=== PATIENT | male | born 1950 | race Caucasian/White ===

== ENCOUNTER → 2019-04-25 | Day surgery (SDC) | payer MEDICARE, OTHER ==
[2019-04-24 09:05] LABS: BASOPHILS # (AUTO) 0.1 (0.0-0.1); BASOPHILS % 1.2 % (0.0-1.0); EOSINOPHILS # (AUTO) 0.5 (0.0-0.4); EOSINOPHILS % 5.8 % (0.0-6.0); HEMATOCRIT 47.3 % (38.2-49.6); HEMOGLOBIN 15.4 g/dL (14.0-18.0); LYMPHOCYTES # (AUTO) 1.3 (1.0-3.2); LYMPHOCYTES % 16.5 % (18.0-39.1); MEAN CORPUSCULAR HEMOGLOBIN 29.7 pg (28-32); MEAN CORPUSCULAR HGB CONC 32.6 g/dL (31-35); MEAN CORPUSCULAR VOLUME 91.1 fL (81-99); MONOCYTES # (AUTO) 0.7 (0.2-0.8); MONOCYTES % 9.6 % (4.4-11.3); NEUTROPHILS # (AUTO) 5.1 (2.1-6.9); NEUTROPHILS % 65.7 % (38.7-80.0); PLATELET COUNT 319 x10e3/uL (140-360); RED BLOOD COUNT 5.19 x10e6/uL (4.3-5.7); RED CELL DISTRIBUTION WIDTH 14.3 % (11.7-14.4)
[~2019-04-25] MED LIST: ASPIR 8181 MG PO; CABERGOLINE0.5 MG PO; CELEBREX100 MG PO; CIALIS5 MG PO; DIAZEPAM5 MG PO; ESOMEPRAZOLE MA40 MG PO; HYOSCYAMINE 0.125 MG TAB ONE; LIDOCAINE HCL 2% LOCAL INJ 5 ML SDV VIAL INJ ONE; LISINOPRIL10 MG PO; MIDAZOLAM HCL 2 MG/2 ML VIAL ONE; PROPOFOL IV EMULSION 10 MG/ML 50 ML VIAL ONE; REPATHA SC; TESTOSTERONE SC; TIZANIDINE HCL4 M1 PO; TYLENOL CODEINE PO
--- OUTSIDE RECORDS SUMMARY | 2019-04-25 06:45 | XMS REPORT ---
Author Author [facility] Address Unknown Phone Unavailable Care Team Providers Care Babcock Tester Name Role Phone CLAUDIAJerTom Unavailable Unavailable EMMETT CESAR Unavailable Unavailable Problems This patient has no known problems. Allergies, Adverse Reactions, Alerts This patient has no known allergies or adverse reactions. Medications This patient has no known medications. Results Test Description Test Time Test Comments Text Results Atomic Results Result Comments MR, ABDOMEN, MRCP 2018-09-07 16:09:00 FINAL REPORT MR Abdomen dated 09/07/2018 Comment: Multiplanar T1 and T2-weighted images, respiratory triggered and breath-hold MRCP sequences were obtained. 3-D reconstruction of the abdomen was performed for better evaluation of the biliary tree. Gallbladder is contracted. No gallstone is present. No gallbladder wall thickening or pericholecystic fluid collection is seen. MRCP demonstrates normal caliber intra and extra hepatic biliary ducts. No filling defect is seen in the biliary ducts to suggest choledocholithiasis. Common bile duct measures approximately 3 mm in size. Pancreatic duct is normal in caliber. Liver is normal in size without focal abnormality. Liver is suboptimally evaluated on the MRCP sequences. Spleen is normal in size. Pancreas and adrenals are unremark able. Both kidneys are normal in size. Impression: No cholelithiasis, choledocholithiasis or biliary dilatation. Signed: Gali Jara MDReport Verified Date/Time: 09/07/2018 16:09:28 Reading Location: [facility] C013Y CT Body Reading Room R LOCAL, WB, 2 OR MORE DAYS 2018-09-07 14:58:00 Reason for Exam:->C25.9 C7A.1 FINAL REPORT PROCEDURE: OCTREOSCAN - Tumor Localization CPT CODE: 80519, 65624, 35557 INDICATION: C25.9, C7A.1 PROTOCOL: 6.4 mCi of In-111 pentetreotide was injected intravenously. Images were obtained 4 and 25 hours after tracer injection and included whole body and spot images on both days as well as tomographic (SPECT) images of the abdomen on Day 1 and of the chest on Day 2. Limited low-dose CT images were also obtained for anatomic correlation. FINDINGS: Tracer distribution is physiological. IMPRESSION: Normal Octreoscan. No evidence of somatostatin receptor positive neoplasm is identified. Signed: Kiko Foley MDReport Verified Date/Time: 09/07/2018 14:58:52 Reading Location: [address] [address] Reading Room , CTA AAA, W/ LEEROY.EXT.RUNOFF 2018-08-09 17:14:00 Addendum BeginsREPORT STATUS:A I agree with the nonvascular findings with exceptions as follow:*Mild diverticulosis of the sigmoid and right colon.*Prior laminectomies from L2 through L4.*An arterially enhancing lesion in the pancreatic body measures 0.8 cm on axial image 53. 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 Referral to a pancreatic surgeon and a possible MRI are recommended.*An enhancing lesion at the periphery of segment VIII measures 1.1 cm. This is indeterminate in origin. An additional 0.6 cm lesion in segment VIII is indeterminate in origin. Given the likely neuroendocrine tumor in the pancreas, evaluation with an MRI of the liver is recommended.*Grade 2 anterolisthesis of L5 on S1. *Two retroaortic left renal veins. The findings were discussed with Dr. Sarmiento on 08/09/2018 at 5:14 PM. Signed: Deep Myles MDReport Verified Date/Time: 08/09/2018 17:14:34 Reading Location: [address] Radiology Reading RoomAddendum EndsAddendum BeginsREPORT STATUS:A The volume of the abdominal aortic aneurysm is measuring 75 cc, measured from the infrarenal segment of the abdominal aorta to the bifurcation. Signed: Azael Mcintosh MDReport Verified Date/Time: 08/09/2018 14:58:06 Reading Location: [facility] P047 Cardiology MRIAddendum EndsFINAL REPORT CTA AAA with bilateral external runoff - chest with coronary amarilis cium score and coronary CTA: 08/09/2018 11:17 AM. Comparison: None available History: 67 years old Male with hypertension, dyslipidemia, coronary artery disease with clinically suspected peripheral vascular disease. Evaluated for further treatment options. Indication: Clinically suspected peripheral vascular disease. This study is performed in an attempt to avoid an invasive procedure. Technique: Multi-detector CT technology was employed ([place] CT 660 scanner). Spiral acquisition before and during intravenous contrast administration. Images were obtained before and during the dynamic passage of intravenous contrast material. Multi-planar 3-D volume-rendering reconstruction was performed using an independent workstation interactively by the interpreting physician as well as the 3-D specialist for optimal visualization of the abdominal aorta, pelvic arteries as well as its branches, along with bilateral lower extremity vasculature. Please refer to the contrast sheet scanned in the EPIC system for the amount and route of contrast given. This exam was performed according to our departmental dose-optimization programme, which includes automated exposure control, adjustment of the mA and/or kV according to patient size and/or use of iterative reconstruction technique. Dose modulation, iterative reconstruction, and/or weight based adjustment of the mA/kV was utilized to reduce the radiation dose to as low as reasonably achievable. RESULT: Potential study limitations: None. LIMITED CHEST:The visualized chest wall is unremarkable. The visualized lungs reveal no acute abnormalities. VASCULAR WITH ADVANCED 3-D OFFLINE POST- PROCESSING:The abdominal aorta: Normal in course and caliber with mild to moderate calcific vascular changes, except for moderate circumferential calcification near the bifurcation of the aorta with a minimal luminal diameter measuring 1.1 x 1.2 cm. The celiac artery, SMA, and ENOC are patent. There are two right and one left renal arteries, which are widely patent. The distal segment of the left common iliac artery has moderate luminal stenosis with a minimal luminal diameter measuring 0.6 x 0.7 cm, with normal proximal segment measuring 1.2 x 1.4 cm. Also the proximal segment of the external iliac artery has mild to moderate luminal stenosis with a minimal luminal diameter measuring 0.5 x 0.5 cm, with normal distal segment measuring 0.8 x 0.9 cm. Beyond this seg ment the left external iliac and left common femoral arteries are moderately tortuous with mild to moderate calcific atherosclerotic changes with no significant luminal stenosis. The right common iliac artery has mild to moderate calcification with no significant luminal stenosis, however the proximal segment of the right external iliac artery has mild to moderate luminal stenosis of the minimal luminal diameter measuring 0.6 x 0.6 cm, with the distal normal segment measuring 0.8 x 0.8 cm. Beyond this segment the right external iliac and left common femoral arteries are moderately tortuous with mild to moderate calcific atherosclerotic changes with no significant luminal stenosis. There is no acute aortic pathology, such as dissection, intramural hematoma, or contained rupture. Currency Examiner dimensions of the abdominal aorta are as follows: *2.6 cm at the supra-mesenteric segment*2.2 cm at the mesenteric segment*1.8 cm at the renal segment*2.0 cm at the infrarenal segment*1.1 x 1.2 cm at the aortic bifurcation Minimal pelvic vessel calibers are as follows: *1.0 x 1.1 cm at the right common iliac artery*0.6 x 0.7 cm at the left common iliac artery, with the proximal normal segment measuring 1.3 x 1.4 cm.*0.6 x 0.6 cm at the right external iliac artery, with the more distal normal segment measuring 0.8 x 0.8 cm*0.5 x 0.5 cm at the left external iliac artery, with the more distal normal segment measuring 0.8 x 0.9 cm The Inflow vessels:There is no significant in-flow disease:There is mild to moderate calcific atherosclerotic changes at the distal segment of the right common femoral artery with no significant luminal stenosis, minimal luminal diameter measuring 0.5 x 0.8 cm. Otherwise the remaining right superficial femoral, deep femoral arteries are widely patent with mild scattered calcific sclerotic changes. There is mild to moderate calcific atherosclerotic changes at the proximal segment of the left superficial femoral artery with no significant luminal stenosis. Otherwise the remaining left common femoral, superficial femoral, and deep femoral arteries are all widely patent with no significant stenosis.The right and left popliteal arteries are widely patent. The outflow vessels:There is no significant out-flow disease:The right popliteal artery and tibioperoneal trunk are widely patent with only mild scattered atherosclerotic changes.The right anterior tibial artery is widely patent and terminates in a normal appearing dorsalis pedis artery. The posterior tibial artery is widely patent and terminates in normal appearing posterior plantar branches. The peroneal artery is widely patent and terminates just above the ankle. The left popliteal artery and tibioperoneal trunk are widely patent with only mild scattered atherosclerotic changes.The left anterior tibial artery is widely patent and terminates in a normal appearing dorsalis pedis artery. The posterior tibial artery is widely patent and terminates in normal appearing posterior plantar branches. The peroneal artery is widely patent and terminates just above the ankle. The IVC, right iliac vein, and left iliac vein are patent and without visible thrombus. The right greater saphenous vein normal. The left greater saphenous vein is not seen likely due to venous stripping ABDOMEN- PELVIS:In the abdomen, the liver and spleen appears unremarkable. No abnormal enhancing structure is identified. The gallbladder and pancreas appears grossly normal. The adrenal glands are not enlarged. There is a 6 mm calcific lymph node noted near the pelvis (image 165). The kidneys are normal in size and shape. No hydronephrosis or perirenal fluid collection is identified. Incidental finding, there is a retroaortic left renal artery course with no evidence of thrombus. Bowel is not well assessed by CT angiography as enteric contrast is not given. No obvious bowel dilation is seen. There is no significant retroperitoneal adenopathy. No free fluid or free air is identified. The visualized pelvic organs appear unremarkable, mildly enlarged prostate associated with calcification. There are surgical clips noted near the medial aspect of the left knee likely from prior varicose veins surgery. BONES:Degenerative changes involving the lumbar spine. Impression: 1. The abdominal aorta is normal in course and caliber with mild to moderate calcific vascular changes, except for moderate circumferential calcification near the bifurcation of the aorta with a minimal luminal diameter measuring 1.1 x 1.2 cm. No acute abnormalities identified. 2. .The distal segment of the left common iliac artery has moderate luminal stenosis with a minimal luminal diameter measuring 0.6 x 0.7 cm, with normal proximal segment measuring 1.2 x 1.4 cm. 3. The right common iliac artery has mild to moderate calcification with no significant luminal stenosis, however the proximal segment of the right external iliac artery has mild to moderate luminal stenosis of the minimal luminal diameter measuring 0.6 x 0.6 cm, with the distal normal segment measuring 0.8 x 0.8 cm. 4. Normal bilateral runoffs with no significant luminal stenosis. No evidence for significant in- flow or out-flow disease, except for mild to moderate calcification as described above. An addendum will be dictated regarding the non-vascular findings by the Staff Interpreter Radiologists. Signed: Azael Mcintosh Verified Date/Time: 08/09/2018 14:36:33 Reading Location: [place] [id number] Cardiology MRI -CREATININE 2018-08-09 12:05:00 POC-CREATININE (BEAKER) (test kzlu=7741) 1.0 mg/dL 0.6-1.3 TESTED AT [facility] [address] [facility] [address] POC-EGFR (BEAKER) (test zvbd=5181) 75 mL/min/1.73M2 RAD, CHEST, 2 [id number] 10:39:00Reason for Exam:->z95.3Location[facility] HISTORY: z95.3 TECHNIQUE: 2 views of the chest COMPARISON: 02/16/2017 IMPRESSION: There are no infiltrates. A small left pleural effusion is again seen. The cardiomediastinal silhouette is unchanged with sternotomy and aortic valve replacement. Multiple chronic left rib fracture deformities are again noted. Signed: Fernando Hayes Verified Date/Time: 03/03/2017 10:39:07 Reading Location: [facility] Radiology Reading Room C METABOLIC [id number] 05:28:00* Test Item Value Reference Range Comments SODIUM (BEAKER) (test ykwy=760) 142 meq/L 136-145 POTASSIUM (BEAKER) (test mboj=087) 4.2 meq/L 3.5-5.1 CHLORIDE (BEAKER) (test fyag=620) 105 meq/L 98-107 CO2 (BEAKER) (test kefe=842) 29 meq/L 22-29 BLOOD UREA NITROGEN (BEAKER) (test mnbu=553) 6 mg/dL 7-21 CREATININE (BEAKER) (test hcoc=256) 0.77 mg/dL 0.57-1.25 GLUCOSE RANDOM (BEAKER) (test bdrm=815) 103 mg/dL 70-105 CALCIUM (BEAKER) (test vpjl=534) 9.6 mg/dL 8.4-10.2 EGFR (BEAKER) (test qpyu=0326) 101 mL/min/1.73 sq m ESTIMATED GFR IS NOT ACCURATE CREATININE CLEARANCE IN PREDICTING GLOMERULAR FILTRATION RATE. ESTIMATED GFR IS NOT APPLICABLE FOR DIALYSIS PATIENTS. PROTHROMBIN [id number] 05:11:00* Test Item Value Reference Range Comments PROTIME (BEAKER) (test kihd=097) 14.5 seconds 11.7-14.7 INR (BEAKER) (test wzyo=313) 1.1 <=5.9 RECOMMENDED COUMADIN/WARFARIN INR THERAPY RANGESSTANDARD DOSE: 2.0 - 3.0 Inclu jennifer: PROPHYLAXIS for venous thrombosis, systemic embolization; TREATMENT for adi ous thrombosis and/or pulmonary embolus.HIGH RISK: Target INR is 2.5-3.5 for pat ients with mechanical heart valves.CBC W/PLT COUNT & AUTO [id number] 05:10:00* Test Item Value Reference Range Comments WHITE BLOOD CELL COUNT (BEAKER) (test qrfe=278) 9.6 K/ L 3.5-10.5 RED BLOOD CELL COUNT (BEAKER) (test ikmu=694) 2.96 M/ L 4.63-6.08 HEMOGLOBIN (BEAKER) (test ljlx=289) 8.8 GM/DL 13.7-17.5 HEMATOCRIT (BEAKER) (test sbfm=845) 27.8 % 40.1-51.0 MEAN CORPUSCULAR VOLUME (BEAKER) (test njeh=623) 93.9 fL 79.0-92.2 MEAN CORPUSCULAR HEMOGLOBIN (BEAKER) (test zhse=705) 29.7 pg 25.7-32.2 MEAN CORPUSCULAR HEMOGLOBIN CONC (BEAKER) (test nbfg=823) 31.7 GM/DL 32.3-36.5 RED CELL DISTRIBUTION WIDTH (BEAKER) (test vexl=753) 13.9 % 11.6-14.4 PLATELET COUNT (BEAKER) (test xqax=905) 519 K/CU MM 150-450 MEAN PLATELET VOLUME (BEAKER) (test dqoc=400) 9.9 fL 9.4-12.4 NUCLEATED RED BLOOD CELLS (BEAKER) (test juot=689) 0 /100 WBC 0-0 NEUTROPHILS RELATIVE PERCENT (BEAKER) (test tabm=877) 63 % LYMPHOCYTES RELATIVE PERCENT (BEAKER) (test xbwk=244) 20 % MONOCYTES RELATIVE PERCENT (BEAKER) (test eyge=466) 9 % EOSINOPHILS RELATIVE PERCENT (BEAKER) (test wvkv=395) 6 % BASOPHILS RELATIVE PERCENT (BEAKER) (test ydsg=748) 1 % NEUTROPHILS ABSOLUTE COUNT (BEAKER) (test hqxj=511) 6.08 K/ L 1.78-5.38 LYMPHOCYTES ABSOLUTE COUNT (BEAKER) (test kyku=946) 1.91 K/ L 1.32-3.57 MONOCYTES ABSOLUTE COUNT (BEAKER) (test neuq=773) 0.85 K/ L 0.30-0.82 EOSINOPHILS ABSOLUTE COUNT (BEAKER) (test qvdc=529) 0.60 K/ L 0.04-0.54 BASOPHILS ABSOLUTE COUNT (BEAKER) (test igkn=864) 0.06 K/ L 0.01-0.08 IMMATURE GRANULOCYTES-RELATIVE PERCENT (BEAKER) (test fjxr=8841) 1 % 0-1 BLOOD [id number] 00:00:00* Test Item Value Reference Range Comments CULTURE (BEAKER) (test foys=5720) No growth in 5 days BLOOD [id number] 12:00:00* Test Item Value Reference Range Comments CULTURE (BEAKER) (test flyq=4595) No growth in 5 days PROTHROMBIN TIME/[id number] 05:45:00* Test Item Value Reference Range Comments PROTIME (BEAKER) (test dwmq=278) 14.9 seconds 11.7-14.7 INR (BEAKER) (test dimc=377) 1.2 <=5.9 RECOMMENDED COUMADIN/WARFARIN INR THERAPY RANGESSTANDARD DOSE: 2.0 - 3.0 Inclu jennifer: PROPHYLAXIS for venous thrombosis, systemic embolization; TREATMENT for adi ous thrombosis and/or pulmonary embolus.HIGH RISK: Target INR is 2.5-3.5 for pat ients with mechanical heart valves.CBC W/PLT COUNT & AUTO [id number] 05:29:00* Test Item Value Reference Range Comments WHITE BLOOD CELL COUNT (BEAKER) (test ljmm=588) 12.5 K/ L 3.5-10.5 RED BLOOD CELL COUNT (BEAKER) (test mcrn=152) 2.75 M/ L 4.63-6.08 HEMOGLOBIN (BEAKER) (test treo=967) 8.3 GM/DL 13.7-17.5 HEMATOCRIT (BEAKER) (test xoia=687) 25.5 % 40.1-51.0 MEAN CORPUSCULAR VOLUME (BEAKER) (test borg=532) 92.7 fL 79.0-92.2 MEAN CORPUSCULAR HEMOGLOBIN (BEAKER) (test hjus=585) 30.2 pg 25.7-32.2 MEAN CORPUSCULAR HEMOGLOBIN CONC (BEAKER) (test faxb=003) 32.5 GM/DL 32.3-36.5 RED CELL DISTRIBUTION WIDTH (BEAKER) (test djec=117) 13.6 % 11.6-14.4 PLATELET COUNT (BEAKER) (test pyon=012) 439 K/CU MM 150-450 MEAN PLATELET VOLUME (BEAKER) (test hxhw=709) 10.0 fL 9.4-12.4 NUCLEATED RED BLOOD CELLS (BEAKER) (test fczb=367) 0 /100 WBC 0-0 NEUTROPHILS RELATIVE PERCENT (BEAKER) (test mafo=906) 70 % LYMPHOCYTES RELATIVE PERCENT (BEAKER) (test uvdo=228) 13 % MONOCYTES RELATIVE PERCENT (BEAKER) (test oppa=610) 10 % EOSINOPHILS RELATIVE PERCENT (BEAKER) (test regy=519) 5 % BASOPHILS RELATIVE PERCENT (BEAKER) (test yacr=705) 1 % NEUTROPHILS ABSOLUTE COUNT (BEAKER) (test pozz=683) 8.78 K/ L 1.78-5.38 LYMPHOCYTES ABSOLUTE COUNT (BEAKER) (test vucu=727) 1.68 K/ L 1.32-3.57 MONOCYTES ABSOLUTE COUNT (BEAKER) (test bbow=465) 1.29 K/ L 0.30-0.82 EOSINOPHILS ABSOLUTE COUNT (BEAKER) (test siip=350) 0.61 K/ L 0.04-0.54 BASOPHILS ABSOLUTE COUNT (BEAKER) (test saqy=594) 0.08 K/ L 0.01-0.08 IMMATURE GRANULOCYTES-RELATIVE PERCENT (BEAKER) (test qfae=5385) 1 % 0-1 BASIC METABOLIC [id number] 05:25:00* Test Item Value Reference Range Comments SODIUM (BEAKER) (test ibjw=011) 142 meq/L 136-145 POTASSIUM (BEAKER) (test sbgd=232) 3.8 meq/L 3.5-5.1 CHLORIDE (BEAKER) (test ksya=097) 106 meq/L 98-107 CO2 (BEAKER) (test arcn=583) 26 meq/L 22-29 BLOOD UREA NITROGEN (BEAKER) (test xkuo=422) 8 mg/dL 7-21 CREATININE (BEAKER) (test qhmv=217) 0.72 mg/dL 0.57-1.25 GLUCOSE RANDOM (BEAKER) (test wybm=168) 91 mg/dL 70-105 CALCIUM (BEAKER) (test otpi=619) 9.0 mg/dL 8.4-10.2 EGFR (BEAKER) (test eroe=1881) 110 mL/min/1.73 sq m ESTIMATED GFR IS NOT ACCURATE CREATININE CLEARANCE IN PREDICTING GLOMERULAR FILTRATION RATE. ESTIMATED GFR IS NOT APPLICABLE FOR DIALYSIS PATIENTS. [id number] 05:24:00* Test Item Value Reference Range Comments MAGNESIUM (BEAKER) (test pqsk=731) 1.8 mg/dL 1.6-2.6 PROTHROMBIN [id number] 05:20:00* Test Item Value Reference Range Comments PROTIME (BEAKER) (test wgfs=873) 15.2 seconds 11.7-14.7 INR (BEAKER) (test fpsm=360) 1.2 <=5.9 RECOMMENDED COUMADIN/WARFARIN INR THERAPY RANGESSTANDARD DOSE: 2.0 - 3.0 Inclu jennifer: PROPHYLAXIS for venous thrombosis, systemic embolization; TREATMENT for adi ous thrombosis and/or pulmonary embolus.HIGH RISK: Target INR is 2.5-3.5 for pat ients with mechanical heart valves.[id number] 18:51:00* Test Item Value Reference Range Comments MAGNESIUM (BEAKER) (test mens=959) 1.7 mg/dL 1.6-2.6 BASIC METABOLIC [id number] 18:51:00* Test Item Value Reference Range Comments SODIUM (BEAKER) (test qqeg=968) 140 meq/L 136-145 POTASSIUM (BEAKER) (test spno=630) 3.4 meq/L 3.5-5.1 CHLORIDE (BEAKER) (test upii=833) 106 meq/L 98-107 CO2 (BEAKER) (test dlnl=122) 24 meq/L 22-29 BLOOD UREA NITROGEN (BEAKER) (test vibm=416) 8 mg/dL 7-21 CREATININE (BEAKER) (test tsbn=739) 0.73 mg/dL 0.57-1.25 GLUCOSE RANDOM (BEAKER) (test rzwu=024) 104 mg/dL 70-105 CALCIUM (BEAKER) (test cdds=404) 8.9 mg/dL 8.4-10.2 EGFR (BEAKER) (test qqfa=3596) 108 mL/min/1.73 sq m ESTIMATED GFR IS NOT ACCURATE CREATININE CLEARANCE IN PREDICTING GLOMERULAR FILTRATION RATE. ESTIMATED GFR IS NOT APPLICABLE FOR DIALYSIS PATIENTS. CBC W/PLT COUNT & AUTO [id number] 18:12:00* Test Item Value Reference Range Comments WHITE BLOOD CELL COUNT (BEAKER) (test oemg=340) 11.8 K/ L 3.5-10.5 RED BLOOD CELL COUNT (BEAKER) (test esvn=224) 2.61 M/ L 4.63-6.08 HEMOGLOBIN (BEAKER) (test dqxz=778) 7.9 GM/DL 13.7-17.5 HEMATOCRIT (BEAKER) (test ghnc=653) 23.7 % 40.1-51.0 MEAN CORPUSCULAR VOLUME (BEAKER) (test kmhb=335) 90.8 fL 79.0-92.2 MEAN CORPUSCULAR HEMOGLOBIN (BEAKER) (test nvvm=121) 30.3 pg 25.7-32.2 MEAN CORPUSCULAR HEMOGLOBIN CONC (BEAKER) (test hxmm=246) 33.3 GM/DL 32.3-36.5 RED CELL DISTRIBUTION WIDTH (BEAKER) (test iexd=481) 13.4 % 11.6-14.4 PLATELET COUNT (BEAKER) (test ijpt=646) 372 K/CU MM 150-450 MEAN PLATELET VOLUME (BEAKER) (test mqsi=534) 9.9 fL 9.4-12.4 NUCLEATED RED BLOOD CELLS (BEAKER) (test aybm=166) 0 /100 WBC 0-0 NEUTROPHILS RELATIVE PERCENT (BEAKER) (test yfpz=541) 71 % LYMPHOCYTES RELATIVE PERCENT (BEAKER) (test tibf=478) 13 % MONOCYTES RELATIVE PERCENT (BEAKER) (test tjjz=514) 10 % EOSINOPHILS RELATIVE PERCENT (BEAKER) (test zqgd=843) 5 % BASOPHILS RELATIVE PERCENT (BEAKER) (test xqwg=885) 1 % NEUTROPHILS ABSOLUTE COUNT (BEAKER) (test ihhs=868) 8.38 K/ L 1.78-5.38 LYMPHOCYTES ABSOLUTE COUNT (BEAKER) (test vfpi=898) 1.55 K/ L 1.32-3.57 MONOCYTES ABSOLUTE COUNT (BEAKER) (test ooym=932) 1.20 K/ L 0.30-0.82 EOSINOPHILS ABSOLUTE COUNT (BEAKER) (test yvno=633) 0.58 K/ L 0.04-0.54 BASOPHILS ABSOLUTE COUNT (BEAKER) (test skwe=405) 0.07 K/ L 0.01-0.08 IMMATURE GRANULOCYTES-RELATIVE PERCENT (BEAKER) (test bxwk=4674) 1 % 0-1 BLOOD GAS, [id number] 18:04:00* Test Item Value Reference Range Comments PH ARTERIAL (BEAKER) (test kzie=485) 7.43 7.35-7.45 PCO2 ARTERIAL (BEAKER) (test szbo=060) 42 mmHg 35-45 PO2 ARTERIAL (BEAKER) (test hetz=396) 72 mmHg 80-90 O2 SATURATION ARTERIAL (BEAKER) (test nqlb=908) 95.1 % 96.0-97.0 HCO3 ARTERIAL (BEAKER) (test oewi=036) 27 mmol/L 21-29 BASE EXCESS ARTERIAL (BEAKER) (test eovg=349) 2.7 mmol/L -2.0-3.0 PATIENT TEMPERATURE (BEAKER) (test andg=0143) 36.8 C FIO2 (BEAKER) (test xryi=9015) 28.0 % POTASSIUM-STAT [id number] 18:04:00* Test Item Value Reference Range Comments POTASSIUM (BEAKER) (test bxwb=486) 3.2 meq/L 3.6-5.5 HGB/HCT (H&H) - STAT [id number] 18:04:00* Test Item Value Reference Range Comments HEMOGLOBIN (BEAKER) (test bilz=316) 8.6 g/dL 13.0-16.8 HEMATOCRIT (BEAKER) (test wvtn=095) 25.0 % 40.0-50.0 CALCIUM, [id number] 18:04:00* Test Item Value Reference Range Comments CALCIUM IONIZED (BEAKER) (test lfbj=182) 1.14 mmol/L 1.12-1.27 PH, BLOOD (BEAKER) (test ldlq=1915) 7.43 GLUCOSE-STAT [id number] 18:02:00* Test Item Value Reference Range Comments GLUCOSE RANDOM (BEAKER) (test dmld=903) 98 mg/dL 70-110 SODIUM NA-STAT [id number] 18:02:00* Test Item Value Reference Range Comments SODIUM (BEAKER) (test qrzw=054) 139 meq/L 135-148 SPUTUM CULTURE + GRAM [id number] 08:34:00* Test Item Value Reference Range Comments CULTURE (BEAKER) (test rlfj=7651) <1+ Streptococcus not group A beta hemolyticIdentified by serological grouping. GRAM STAIN RESULT (BEAKER) (test mzhl=7572) 2+ WBCs GRAM STAIN RESULT (BEAKER) (test zjir=595464) 0-5 epithelial cells GRAM STAIN RESULT (BEAKER) (test etub=906196) <1+ gram positive rods GRAM STAIN RESULT (BEAKER) (test roml=541670) <1+ gram positive cocci in chains, pairs and clusters 2+ Normal respiratory jermaine presentPROTHROMBIN TIME/[id number] 07:00:00* Test Item Value Reference Range Comments PROTIME (BEAKER) (test hgni=597) 14.8 seconds 11.7-14.7 INR (BEAKER) (test rtco=138) 1.2 <=5.9 RECOMMENDED COUMADIN/WARFARIN INR THERAPY RANGESSTANDARD DOSE: 2.0 - 3.0 Inclu jennifer: PROPHYLAXIS for venous thrombosis, systemic embolization; TREATMENT for adi ous thrombosis and/or pulmonary embolus.HIGH RISK: Target INR is 2.5-3.5 for pat ients with mechanical heart valves.URINE [id number] 10:59:00* Test Item Value Reference Range Comments CULTURE (BEAKER) (test ydej=0723) No growth PROTHROMBIN [id number] 06:36:00* Test Item Value Reference Range Comments PROTIME (BEAKER) (test lkie=149) 15.1 seconds 11.7-14.7 INR (BEAKER) (test smmf=316) 1.2 <=5.9 RECOMMENDED COUMADIN/WARFARIN INR THERAPY RANGESSTANDARD DOSE: 2.0 - 3.0 Inclu jennifer: PROPHYLAXIS for venous thrombosis, systemic embolization; TREATMENT for adi ous thrombosis and/or pulmonary embolus.HIGH RISK: Target INR is 2.5-3.5 for pat ients with mechanical heart valves.CBC W/PLT COUNT & AUTO [id number] 06:32:00* Test Item Value Reference Range Comments WHITE BLOOD CELL COUNT (BEAKER) (test qvsq=459) 11.4 K/ L 3.5-10.5 RED BLOOD CELL COUNT (BEAKER) (test mrjy=622) 2.70 M/ L 4.63-6.08 HEMOGLOBIN (BEAKER) (test qxpq=120) 8.1 GM/DL 13.7-17.5 HEMATOCRIT (BEAKER) (test rlbx=612) 24.6 % 40.1-51.0 MEAN CORPUSCULAR VOLUME (BEAKER) (test tbvm=168) 91.1 fL 79.0-92.2 MEAN CORPUSCULAR HEMOGLOBIN (BEAKER) (test nzcd=004) 30.0 pg 25.7-32.2 MEAN CORPUSCULAR HEMOGLOBIN CONC (BEAKER) (test yjwm=155) 32.9 GM/DL 32.3-36.5 RED CELL DISTRIBUTION WIDTH (BEAKER) (test ugfm=480) 13.4 % 11.6-14.4 PLATELET COUNT (BEAKER) (test dezs=339) 235 K/CU MM 150-450 MEAN PLATELET VOLUME (BEAKER) (test npdr=444) 10.9 fL 9.4-12.4 NUCLEATED RED BLOOD CELLS (BEAKER) (test nwiv=927) 0 /100 WBC 0-0 NEUTROPHILS RELATIVE PERCENT (BEAKER) (test ztuo=193) 74 % LYMPHOCYTES RELATIVE PERCENT (BEAKER) (test pqec=465) 10 % MONOCYTES RELATIVE PERCENT (BEAKER) (test afsd=291) 13 % EOSINOPHILS RELATIVE PERCENT (BEAKER) (test axhh=771) 2 % BASOPHILS RELATIVE PERCENT (BEAKER) (test hmrw=566) 0 % NEUTROPHILS ABSOLUTE COUNT (BEAKER) (test mocx=589) 8.44 K/ L 1.78-5.38 LYMPHOCYTES ABSOLUTE COUNT (BEAKER) (test edmg=264) 1.11 K/ L 1.32-3.57 MONOCYTES ABSOLUTE COUNT (BEAKER) (test sjrt=251) 1.53 K/ L 0.30-0.82 EOSINOPHILS ABSOLUTE COUNT (BEAKER) (test ghse=250) 0.24 K/ L 0.04-0.54 BASOPHILS ABSOLUTE COUNT (BEAKER) (test bvvu=073) 0.05 K/ L 0.01-0.08 IMMATURE GRANULOCYTES-RELATIVE PERCENT (BEAKER) (test ovrr=1001) 0 % 0-1 PROTHROMBIN TIME/[id number] 06:27:00* Test Item Value Reference Range Comments PROTIME (BEAKER) (test pavo=436) 15.7 seconds 11.7-14.7 INR (BEAKER) (test lwsd=443) 1.3 <=5.9 RECOMMENDED COUMADIN/WARFARIN INR THERAPY RANGESSTANDARD DOSE: 2.0 - 3.0 Inclu jennifer: PROPHYLAXIS for venous thrombosis, systemic embolization; TREATMENT for adi ous thrombosis and/or pulmonary embolus.HIGH RISK: Target INR is 2.5-3.5 for pat ients with mechanical heart valves.BASIC METABOLIC [id number] 06:16:00* Test Item Value Reference Range Comments SODIUM (BEAKER) (test msqp=017) 139 meq/L 136-145 POTASSIUM (BEAKER) (test acht=246) 3.5 meq/L 3.5-5.1 CHLORIDE (BEAKER) (test hkjv=606) 105 meq/L 98-107 CO2 (BEAKER) (test hjcg=842) 26 meq/L 22-29 BLOOD UREA NITROGEN (BEAKER) (test fmvb=246) 15 mg/dL 7-21 CREATININE (BEAKER) (test duls=642) 0.78 mg/dL 0.57-1.25 GLUCOSE RANDOM (BEAKER) (test nebc=376) 116 mg/dL 70-105 CALCIUM (BEAKER) (test jdrc=147) 9.4 mg/dL 8.4-10.2 EGFR (BEAKER) (test icez=7425) 100 mL/min/1.73 sq m ESTIMATED GFR IS NOT ACCURATE CREATININE CLEARANCE IN PREDICTING GLOMERULAR FILTRATION RATE. ESTIMATED GFR IS NOT APPLICABLE FOR DIALYSIS PATIENTS. TISSUE [id number] 16:28:00Surgical Pathology Report Case: [id number] Authorizing Provider: Kobe Cesar MD Collected: 02/07/2017 1052 Ordering Location: [facility] Received: 02/07/2017 1211 PERIOPERATIVE SERVICES Pathologist: Sabino Hewitt MD Specimen: Aortic Valve, AORTIC VALVE LEAFLET HEART, AORTIC VALVE, VALVULECTOMY:3 LEAFLETS WITH NODULAR CALCIFIC ATHEROSCLEROTIC THICKENING Signing Pathologist Direct Phone Line: [phone] signed by Sabino Hewitt MD on 02/10/2017 at 4:28 [id number]; [id number], CAODAortic valve leafletsIn saline labeled "aortic valve" are three irregular jeffrey-white to yellow-whyte rubbery portions of cardiac valve measuring 4.5 x 3.5 x 0.6 cm in aggregate. Sectioning reveals dense calcification. Currency Examiner sections are submitted in cassette A1 for decalcification. DB/plPerformedCBC W/PLT COUNT & AUTO [id number] 07:53:00* Test Item Value Reference Range Comments WHITE BLOOD CELL COUNT (BEAKER) (test siyc=471) 15.2 K/ L 3.5-10.5 RED BLOOD CELL COUNT (BEAKER) (test ovvg=711) 2.69 M/ L 4.63-6.08 HEMOGLOBIN (BEAKER) (test pgtl=022) 8.3 GM/DL 13.7-17.5 HEMATOCRIT (BEAKER) (test kkqj=165) 25.0 % 40.1-51.0 MEAN CORPUSCULAR VOLUME (BEAKER) (test mmbk=988) 92.9 fL 79.0-92.2 MEAN CORPUSCULAR HEMOGLOBIN (BEAKER) (test ixmj=683) 30.9 pg 25.7-32.2 MEAN CORPUSCULAR HEMOGLOBIN CONC (BEAKER) (test ryoa=690) 33.2 GM/DL 32.3-36.5 RED CELL DISTRIBUTION WIDTH (BEAKER) (test ykmf=778) 13.4 % 11.6-14.4 PLATELET COUNT (BEAKER) (test ltqx=112) 185 K/CU MM 150-450 MEAN PLATELET VOLUME (BEAKER) (test nlql=268) 11.7 fL 9.4-12.4 NUCLEATED RED BLOOD CELLS (BEAKER) (test ujkl=869) 0 /100 WBC 0-0 NEUTROPHILS RELATIVE PERCENT (BEAKER) (test mqof=586) 78 % LYMPHOCYTES RELATIVE PERCENT (BEAKER) (test peja=669) 9 % MONOCYTES RELATIVE PERCENT (BEAKER) (test koqk=534) 12 % EOSINOPHILS RELATIVE PERCENT (BEAKER) (test soqn=893) 1 % BASOPHILS RELATIVE PERCENT (BEAKER) (test zuqg=469) 0 % NEUTROPHILS ABSOLUTE COUNT (BEAKER) (test ejdo=549) 11.83 K/ L 1.78-5.38 LYMPHOCYTES ABSOLUTE COUNT (BEAKER) (test uhmf=116) 1.33 K/ L 1.32-3.57 MONOCYTES ABSOLUTE COUNT (BEAKER) (test aaco=311) 1.75 K/ L 0.30-0.82 EOSINOPHILS ABSOLUTE COUNT (BEAKER) (test seit=376) 0.09 K/ L 0.04-0.54 BASOPHILS ABSOLUTE COUNT (BEAKER) (test ffre=230) 0.04 K/ L 0.01-0.08 IMMATURE GRANULOCYTES-RELATIVE PERCENT (BEAKER) (test pcmq=1752) 1 % 0-1 [id number] 06:57:00* Test Item Value Reference Range Comments MAGNESIUM (BEAKER) (test avrz=217) 1.8 mg/dL 1.6-2.6 BASIC METABOLIC [id number] 06:57:00* Test Item Value Reference Range Comments SODIUM (BEAKER) (test nvhe=352) 136 meq/L 136-145 POTASSIUM (BEAKER) (test okqm=193) 3.7 meq/L 3.5-5.1 CHLORIDE (BEAKER) (test xooz=486) 104 meq/L 98-107 CO2 (BEAKER) (test pupt=734) 24 meq/L 22-29 BLOOD UREA NITROGEN (BEAKER) (test qdwg=076) 19 mg/dL 7-21 CREATININE (BEAKER) (test yyan=896) 0.80 mg/dL 0.57-1.25 GLUCOSE RANDOM (BEAKER) (test fpss=622) 119 mg/dL 70-105 CALCIUM (BEAKER) (test wspm=687) 9.2 mg/dL 8.4-10.2 EGFR (BEAKER) (test siey=7398) 97 mL/min/1.73 sq m ESTIMATED GFR IS NOT ACCURATE CREATININE CLEARANCE IN PREDICTING GLOMERULAR FILTRATION RATE. ESTIMATED GFR IS NOT APPLICABLE FOR DIALYSIS PATIENTS. PROTHROMBIN TIME/[id number] 06:32:00* Test Item Value Reference Range Comments PROTIME (BEAKER) (test ncam=553) 15.9 seconds 11.7-14.7 INR (BEAKER) (test ideb=986) 1.3 <=5.9 RECOMMENDED COUMADIN/WARFARIN INR THERAPY RANGESSTANDARD DOSE: 2.0 - 3.0 Inclu jennifer: PROPHYLAXIS for venous thrombosis, systemic embolization; TREATMENT for adi ous thrombosis and/or pulmonary embolus.HIGH RISK: Target INR is 2.5-3.5 for pat ients with mechanical heart valves.[id number] 06:51:00* Test Item Value Reference Range Comments MAGNESIUM (BEAKER) (test dpsh=505) 2.0 mg/dL 1.6-2.6 BASIC METABOLIC [id number] 06:51:00* Test Item Value Reference Range Comments SODIUM (BEAKER) (test vrns=248) 138 meq/L 136-145 POTASSIUM (BEAKER) (test mivg=306) 3.8 meq/L 3.5-5.1 CHLORIDE (BEAKER) (test nvcd=145) 107 meq/L 98-107 CO2 (BEAKER) (test ffhg=925) 25 meq/L 22-29 BLOOD UREA NITROGEN (BEAKER) (test wuse=102) 18 mg/dL 7-21 CREATININE (BEAKER) (test pwuh=823) 0.74 mg/dL 0.57-1.25 GLUCOSE RANDOM (BEAKER) (test jjhj=135) 136 mg/dL 70-105 CALCIUM (BEAKER) (test tfjn=863) 9.0 mg/dL 8.4-10.2 EGFR (BEAKER) (test ehqi=1822) 106 mL/min/1.73 sq m ESTIMATED GFR IS NOT ACCURATE CREATININE CLEARANCE IN PREDICTING GLOMERULAR FILTRATION RATE. ESTIMATED GFR IS NOT APPLICABLE FOR DIALYSIS PATIENTS. CALCIUM, [id number] 06:50:00* Test Item Value Reference Range Comments CALCIUM IONIZED (BEAKER) (test bjjb=932) 1.06 mmol/L 1.12-1.27 PH, BLOOD (BEAKER) (test rntj=5183) 7.52 CBC W/PLT COUNT & AUTO [id number] 06:44:00* Test Item Value Reference Range Comments WHITE BLOOD CELL COUNT (BEAKER) (test rwrz=476) 15.3 K/ L 3.5-10.5 RED BLOOD CELL COUNT (BEAKER) (test njnh=913) 2.76 M/ L 4.63-6.08 HEMOGLOBIN (BEAKER) (test gdui=417) 8.5 GM/DL 13.7-17.5 HEMATOCRIT (BEAKER) (test jdps=214) 25.2 % 40.1-51.0 MEAN CORPUSCULAR VOLUME (BEAKER) (test mpel=916) 91.3 fL 79.0-92.2 MEAN CORPUSCULAR HEMOGLOBIN (BEAKER) (test byjj=723) 30.8 pg 25.7-32.2 MEAN CORPUSCULAR HEMOGLOBIN CONC (BEAKER) (test ecst=552) 33.7 GM/DL 32.3-36.5 RED CELL DISTRIBUTION WIDTH (BEAKER) (test tyin=354) 13.7 % 11.6-14.4 PLATELET COUNT (BEAKER) (test ijch=592) 185 K/CU MM 150-450 MEAN PLATELET VOLUME (BEAKER) (test xwey=032) 11.3 fL 9.4-12.4 NUCLEATED RED BLOOD CELLS (BEAKER) (test ldus=083) 0 /100 WBC 0-0 NEUTROPHILS RELATIVE PERCENT (BEAKER) (test zivw=908) 82 % LYMPHOCYTES RELATIVE PERCENT (BEAKER) (test zuxa=144) 6 % MONOCYTES RELATIVE PERCENT (BEAKER) (test nsbd=214) 10 % EOSINOPHILS RELATIVE PERCENT (BEAKER) (test nyjz=878) 0 % BASOPHILS RELATIVE PERCENT (BEAKER) (test mbxg=538) 0 % NEUTROPHILS ABSOLUTE COUNT (BEAKER) (test wttd=237) 12.62 K/ L 1.78-5.38 LYMPHOCYTES ABSOLUTE COUNT (BEAKER) (test bjhj=368) 0.98 K/ L 1.32-3.57 MONOCYTES ABSOLUTE COUNT (BEAKER) (test lkzj=568) 1.55 K/ L 0.30-0.82 EOSINOPHILS ABSOLUTE COUNT (BEAKER) (test skyj=908) 0.02 K/ L 0.04-0.54 BASOPHILS ABSOLUTE COUNT (BEAKER) (test doqk=223) 0.05 K/ L 0.01-0.08 IMMATURE GRANULOCYTES-RELATIVE PERCENT (BEAKER) (test jdcu=4368) 1 % 0-1 POCT-GLUCOSE [id number] 06:06:00* Test Item Value Reference Range Comments POC-GLUCOSE METER (BEAKER) (test ryyl=3201) 125 mg/dL 70-110 TESTED AT [facility] [address] [facility] [address] [id number] 04:17:00* Test Item Value Reference Range Comments PHOSPHORUS (BEAKER) (test vftm=273) 2.9 mg/dL 2.3-4.7 [id number] 04:17:00* Test Item Value Reference Range Comments MAGNESIUM (BEAKER) (test xtat=987) 2.1 mg/dL 1.6-2.6 BASIC METABOLIC [id number] 04:17:00* Test Item Value Reference Range Comments SODIUM (BEAKER) (test iejx=513) 141 meq/L 136-145 POTASSIUM (BEAKER) (test xqos=348) 3.7 meq/L 3.5-5.1 CHLORIDE (BEAKER) (test euzh=312) 111 meq/L 98-107 CO2 (BEAKER) (test ychd=163) 24 meq/L 22-29 BLOOD UREA NITROGEN (BEAKER) (test kdtb=771) 13 mg/dL 7-21 CREATININE (BEAKER) (test cciu=635) 0.73 mg/dL 0.57-1.25 GLUCOSE RANDOM (BEAKER) (test xsjl=569) 130 mg/dL 70-105 CALCIUM (BEAKER) (test iwrd=858) 8.1 mg/dL 8.4-10.2 EGFR (BEAKER) (test jlfu=2084) 108 mL/min/1.73 sq m ESTIMATED GFR IS NOT ACCURATE CREATININE CLEARANCE IN PREDICTING GLOMERULAR FILTRATION RATE. ESTIMATED GFR IS NOT APPLICABLE FOR DIALYSIS PATIENTS. LACTIC ACID, ARTERIAL, WHOLE [id number] 04:13:00* Test Item Value Reference Range Comments LACTATE BLOOD ARTERIAL (2) (BEAKER) (test fmhn=8597) 0.6 mmol/L 0.5-2.2 Effective 10/29/2015: Units/Reference Range ChangeNew: 0.5-2.2 mmol/L Previous: 5 -20 mg/dLCBC W/PLT COUNT & AUTO [id number] 04:06:00* Test Item Value Reference Range Comments WHITE BLOOD CELL COUNT (BEAKER) (test ggxs=489) 11.6 K/ L 3.5-10.5 RED BLOOD CELL COUNT (BEAKER) (test yxfg=798) 2.91 M/ L 4.63-6.08 HEMOGLOBIN (BEAKER) (test cnxn=223) 8.9 GM/DL 13.7-17.5 HEMATOCRIT (BEAKER) (test fhtr=768) 26.5 % 40.1-51.0 MEAN CORPUSCULAR VOLUME (BEAKER) (test iwuu=569) 91.1 fL 79.0-92.2 MEAN CORPUSCULAR HEMOGLOBIN (BEAKER) (test idht=846) 30.6 pg 25.7-32.2 MEAN CORPUSCULAR HEMOGLOBIN CONC (BEAKER) (test tkig=661) 33.6 GM/DL 32.3-36.5 RED CELL DISTRIBUTION WIDTH (BEAKER) (test xchb=960) 13.7 % 11.6-14.4 PLATELET COUNT (BEAKER) (test oqbq=158) 176 K/CU MM 150-450 MEAN PLATELET VOLUME (BEAKER) (test vflr=168) 10.5 fL 9.4-12.4 NUCLEATED RED BLOOD CELLS (BEAKER) (test ioan=352) 0 /100 WBC 0-0 NEUTROPHILS RELATIVE PERCENT (BEAKER) (test hzvj=454) 86 % LYMPHOCYTES RELATIVE PERCENT (BEAKER) (test xcbo=614) 5 % MONOCYTES RELATIVE PERCENT (BEAKER) (test mojf=973) 9 % EOSINOPHILS RELATIVE PERCENT (BEAKER) (test ytmz=816) 0 % BASOPHILS RELATIVE PERCENT (BEAKER) (test haxk=046) 0 % NEUTROPHILS ABSOLUTE COUNT (BEAKER) (test ldfw=740) 9.93 K/ L 1.78-5.38 LYMPHOCYTES ABSOLUTE COUNT (BEAKER) (test nqbn=823) 0.54 K/ L 1.32-3.57 MONOCYTES ABSOLUTE COUNT (BEAKER) (test nbwu=687) 0.99 K/ L 0.30-0.82 EOSINOPHILS ABSOLUTE COUNT (BEAKER) (test ypsq=353) 0.00 K/ L 0.04-0.54 BASOPHILS ABSOLUTE COUNT (BEAKER) (test sgvz=568) 0.04 K/ L 0.01-0.08 IMMATURE GRANULOCYTES-RELATIVE PERCENT (BEAKER) (test cvls=9951) 1 % 0-1 CALCIUM, [id number] 03:57:00* Test Item Value Reference Range Comments CALCIUM IONIZED (BEAKER) (test ykyq=885) 1.11 mmol/L 1.12-1.27 PH, BLOOD (BEAKER) (test czca=2572) 7.40 OXYGEN SATURATION, [id number] 03:56:00* Test Item Value Reference Range Comments O2 SATURATION (MEASURED) (BEAKER) (test rshi=6731) 65.7 % BLOOD GAS, [id number] 22:51:00* Test Item Value Reference Range Comments PH ARTERIAL (BEAKER) (test cwdi=805) 7.37 7.35-7.45 PCO2 ARTERIAL (BEAKER) (test noep=626) 43 mmHg 35-45 PO2 ARTERIAL (BEAKER) (test hogj=067) 110 mmHg 80-90 O2 SATURATION ARTERIAL (BEAKER) (test usqt=317) 97.7 % 96.0-97.0 HCO3 ARTERIAL (BEAKER) (test iqyb=423) 24 mmol/L 21-29 BASE EXCESS ARTERIAL (BEAKER) (test rjry=263) -1.2 mmol/L -2.0-3.0 PATIENT TEMPERATURE (BEAKER) (test pzgz=9696) 37.9 C FIO2 (BEAKER) (test rtup=3673) 40.0 % CALCIUM, [id number] 21:17:00* Test Item Value Reference Range Comments CALCIUM IONIZED (BEAKER) (test zczx=944) 1.10 mmol/L 1.12-1.27 PH, BLOOD (BEAKER) (test tmre=1012) 7.39 HEMOGLOBIN AND [id number] 21:17:00* Test Item Value Reference Range Comments HEMOGLOBIN (BEAKER) (test azxv=841) 9.7 g/dL 13.0-16.8 HEMATOCRIT (BEAKER) (test sbky=257) 29.0 % 40.0-50.0 BLOOD GAS, [id number] 21:16:00* Test Item Value Reference Range Comments PH ARTERIAL (BEAKER) (test kmjh=804) 7.36 7.35-7.45 PCO2 ARTERIAL (BEAKER) (test paul=778) 42 mmHg 35-45 PO2 ARTERIAL (BEAKER) (test qncz=187) 134 mmHg 80-90 O2 SATURATION ARTERIAL (BEAKER) (test xyps=874) 98.4 % 96.0-97.0 HCO3 ARTERIAL (BEAKER) (test rsvd=303) 23 mmol/L 21-29 BASE EXCESS ARTERIAL (BEAKER) (test lhxk=317) -1.7 mmol/L -2.0-3.0 PATIENT TEMPERATURE (BEAKER) (test yrqd=9467) 38.9 C FIO2 (BEAKER) (test ntmm=0555) 40.0 % THROMBOELASTOGRAPH (TEG)2017-02-07 18:51:00* Test Item Value Reference Range Comments TEG ACTIVATED CLOTTING TIME (BEAKER) (test tejy=1696) 6.3 minutes 4.0-7.0 TEG FIBRINOGEN ACTIVITY (BEAKER) (test symu=9609) 68.3 degrees 61.0-73.0 TEG PLT. AGGREGATION (BEAKER) (test mlvr=9371) 63.0 MM 55.0-65.0 TEG FIBRINOLYSIS (BEAKER) (test cpjb=0605) 1.0 % 0.0-5.0 TGH ACTIVATED CLOTTING TIME (BEAKER) (test taby=2030) 6.3 minutes 4.0-7.0 TGH FIBRINOGEN ACTIVITY (BEAKER) (test nvxv=8058) 68.7 degrees 61.0-73.0 TGH PLT. AGGREGATION (BEAKER) (test adqg=4183) 65.0 MM 55.0-65.0 TGH FIBRINOLYSIS (BEAKER) (test ndaf=0504) 0.0 % 0.0-5.0 [id number] 17:59:00* Test Item Value Reference Range Comments POTASSIUM (BEAKER) (test vhvi=030) 3.7 meq/L 3.5-5.1 Check Serum Potassium level 2 hours after oral potassium replacement completed o r 30 min after intravenous potassium replacement.PROTHROMBIN TIME/[id number] 16:36:00* Test Item Value Reference Range Comments PROTIME (BEAKER) (test oreo=113) 15.9 seconds 11.7-14.7 INR (BEAKER) (test bxch=752) 1.3 <=5.9 RECOMMENDED COUMADIN/WARFARIN INR THERAPY RANGESSTANDARD DOSE: 2.0 - 3.0 Inclu jennifer: PROPHYLAXIS for venous thrombosis, systemic embolization; TREATMENT for adi ous thrombosis and/or pulmonary embolus.HIGH RISK: Target INR is 2.5-3.5 for pat ients with mechanical heart valves.[id number] 16:36:00* Test Item Value Reference Range Comments FIBRINOGEN LEVEL (BEAKER) (test xxsb=763) 251 mg/dl 225-434 [id number] 16:36:00* Test Item Value Reference Range Comments PARTIAL THROMBOPLASTIN TIME (BEAKER) (test njra=939) 30.9 seconds 22.5-36.0 PLATELET [id number] 16:18:00* Test Item Value Reference Range Comments PLATELET COUNT (BEAKER) (test ecqr=984) 210 K/CU MM 150-450 BLOOD GAS, [id number] 15:56:00* Test Item Value Reference Range Comments PH ARTERIAL (BEAKER) (test kbse=044) 7.41 7.35-7.45 PCO2 ARTERIAL (BEAKER) (test vkgy=851) 38 mmHg 35-45 PO2 ARTERIAL (BEAKER) (test dztf=521) 201 mmHg 80-90 O2 SATURATION ARTERIAL (BEAKER) (test ulri=870) 99.4 % 96.0-97.0 HCO3 ARTERIAL (BEAKER) (test gfde=501) 23 mmol/L 21-29 BASE EXCESS ARTERIAL (BEAKER) (test zhye=613) -1.2 mmol/L -2.0-3.0 PATIENT TEMPERATURE (BEAKER) (test auha=5914) 37.0 C FIO2 (BEAKER) (test wqns=6421) 100.0 % HGB/HCT (H&H) - STAT [id number] 15:44:00* Test Item Value Reference Range Comments HEMOGLOBIN (BEAKER) (test kwqq=206) 8.7 g/dL 13.0-16.8 HEMATOCRIT (BEAKER) (test eblv=329) 26.0 % 40.0-50.0 THROMBOELASTOGRAPH (TEG)2017-02-07 15:09:00* Test Item Value Reference Range Comments TEG ACTIVATED CLOTTING TIME (BEAKER) (test cvdd=7865) 5.6 minutes 4.0-7.0 TEG FIBRINOGEN ACTIVITY (BEAKER) (test clvt=7252) 64.5 degrees 61.0-73.0 TEG PLT. AGGREGATION (BEAKER) (test dgnc=0074) 55.8 MM 55.0-65.0 TEG FIBRINOLYSIS (BEAKER) (test baff=5669) 0.3 % 0.0-5.0 TGH ACTIVATED CLOTTING TIME (BEAKER) (test vmqz=6670) 4.1 minutes 4.0-7.0 TGH FIBRINOGEN ACTIVITY (BEAKER) (test uwjo=9359) 65.5 degrees 61.0-73.0 TGH PLT. AGGREGATION (BEAKER) (test yzjs=7114) 52.7 MM 55.0-65.0 TGH FIBRINOLYSIS (BEAKER) (test wcxp=4063) 0.1 % 0.0-5.0 POCT-GLUCOSE [id number] 14:32:00* Test Item Value Reference Range Comments POC-GLUCOSE METER (BEAKER) (test bydm=7850) 112 mg/dL 70-110 TESTED AT [facility] [address] [facility] [address] PROTHROMBIN TIME/[id number] 12:48:00* Test Item Value Reference Range Comments PROTIME (BEAKER) (test ahro=986) 17.8 seconds 11.7-14.7 INR (BEAKER) (test jnhr=255) 1.5 <=5.9 RECOMMENDED COUMADIN/WARFARIN INR THERAPY RANGESSTANDARD DOSE: 2.0 - 3.0 Inclu jennifer: PROPHYLAXIS for venous thrombosis, systemic embolization; TREATMENT for adi ous thrombosis and/or pulmonary embolus.HIGH RISK: Target INR is 2.5-3.5 for pat ients with mechanical heart valves.BASIC METABOLIC [id number] 12:48:00* Test Item Value Reference Range Comments SODIUM (BEAKER) (test bvsi=329) 142 meq/L 136-145 POTASSIUM (BEAKER) (test ijec=945) 3.9 meq/L 3.5-5.1 Specimen slightly hemolyzed CHLORIDE (BEAKER) (test woso=890) 115 meq/L 98-107 CO2 (BEAKER) (test zsai=628) 22 meq/L 22-29 BLOOD UREA NITROGEN (BEAKER) (test wtzy=174) 16 mg/dL 7-21 CREATININE (BEAKER) (test xlyk=731) 0.73 mg/dL 0.57-1.25 Specimen slightly hemolyzed GLUCOSE RANDOM (BEAKER) (test hqwp=392) 129 mg/dL 70-105 CALCIUM (BEAKER) (test vpvb=150) 7.2 mg/dL 8.4-10.2 EGFR (BEAKER) (test ujss=0450) 108 mL/min/1.73 sq m ESTIMATED GFR IS NOT ACCURATE CREATININE CLEARANCE IN PREDICTING GLOMERULAR FILTRATION RATE. ESTIMATED GFR IS NOT APPLICABLE FOR DIALYSIS PATIENTS. [id number] 12:44:00* Test Item Value Reference Range Comments MAGNESIUM (BEAKER) (test sgkz=683) 2.4 mg/dL 1.6-2.6 Specimen slightly hemolyzed [id number] 12:44:00* Test Item Value Reference Range Comments PHOSPHORUS (BEAKER) (test flyx=755) 2.3 mg/dL 2.3-4.7 Specimen slightly hemolyzed LACTIC ACID, ARTERIAL, WHOLE [id number] 12:26:00* Test Item Value Reference Range Comments LACTATE BLOOD ARTERIAL (2) (BEAKER) (test uwxi=3277) 1.6 mmol/L 0.5-2.2 Specimen slightly hemolyzed Effective 10/29/2015: Units/Reference Range ChangeNew: 0.5-2.2 mmol/L Previous: 5 -20 mg/dLCBC W/PLT COUNT & AUTO [id number] 12:21:00* Test Item Value Reference Range Comments WHITE BLOOD CELL COUNT (BEAKER) (test egnq=753) 11.9 K/ L 3.5-10.5 RED BLOOD CELL COUNT (BEAKER) (test datt=219) 2.99 M/ L 4.63-6.08 HEMOGLOBIN (BEAKER) (test agyx=798) 9.3 GM/DL 13.7-17.5 HEMATOCRIT (BEAKER) (test qikw=006) 27.5 % 40.1-51.0 MEAN CORPUSCULAR VOLUME (BEAKER) (test ygan=801) 92.0 fL 79.0-92.2 MEAN CORPUSCULAR HEMOGLOBIN (BEAKER) (test ypxi=540) 31.1 pg 25.7-32.2 MEAN CORPUSCULAR HEMOGLOBIN CONC (BEAKER) (test fshm=006) 33.8 GM/DL 32.3-36.5 RED CELL DISTRIBUTION WIDTH (BEAKER) (test sysl=737) 13.6 % 11.6-14.4 PLATELET COUNT (BEAKER) (test wzgb=728) 140 K/CU MM 150-450 MEAN PLATELET VOLUME (BEAKER) (test hief=728) 10.4 fL 9.4-12.4 NUCLEATED RED BLOOD CELLS (BEAKER) (test lyqz=288) 0 /100 WBC 0-0 NEUTROPHILS RELATIVE PERCENT (BEAKER) (test yhux=745) 85 % LYMPHOCYTES RELATIVE PERCENT (BEAKER) (test kruk=485) 8 % MONOCYTES RELATIVE PERCENT (BEAKER) (test rckd=311) 5 % EOSINOPHILS RELATIVE PERCENT (BEAKER) (test btdo=006) 1 % BASOPHILS RELATIVE PERCENT (BEAKER) (test ulwx=610) 0 % NEUTROPHILS ABSOLUTE COUNT (BEAKER) (test jenp=314) 10.11 K/ L 1.78-5.38 LYMPHOCYTES ABSOLUTE COUNT (BEAKER) (test wdcm=255) 0.89 K/ L 1.32-3.57 MONOCYTES ABSOLUTE COUNT (BEAKER) (test prna=123) 0.54 K/ L 0.30-0.82 EOSINOPHILS ABSOLUTE COUNT (BEAKER) (test fqqr=111) 0.17 K/ L 0.04-0.54 BASOPHILS ABSOLUTE COUNT (BEAKER) (test bxwq=296) 0.03 K/ L 0.01-0.08 IMMATURE GRANULOCYTES-RELATIVE PERCENT (BEAKER) (test ayoh=1950) 1 % 0-1 BLOOD GAS, [id number] 12:18:00* Test Item Value Reference Range Comments PH ARTERIAL (BEAKER) (test gfwj=316) 7.35 7.35-7.45 PCO2 ARTERIAL (BEAKER) (test lmgl=569) 40 mmHg 35-45 PO2 ARTERIAL (BEAKER) (test ldph=755) 74 mmHg 80-90 O2 SATURATION ARTERIAL (BEAKER) (test jozc=081) 95.9 % 96.0-97.0 HCO3 ARTERIAL (BEAKER) (test ftnk=826) 22 mmol/L 21-29 BASE EXCESS ARTERIAL (BEAKER) (test evfz=930) -4.2 mmol/L -2.0-3.0 PATIENT TEMPERATURE (BEAKER) (test higl=6038) 34.4 C FIO2 (BEAKER) (test jlnw=8486) 60.0 % GLUCOSE-STAT [id number] 12:18:00* Test Item Value Reference Range Comments GLUCOSE RANDOM (BEAKER) (test ukmt=169) 119 mg/dL 70-110 HGB/HCT (H&H) - STAT [id number] 12:18:00* Test Item Value Reference Range Comments HEMOGLOBIN (BEAKER) (test ebby=073) 9.8 g/dL 13.0-16.8 HEMATOCRIT (BEAKER) (test ceyf=712) 29.0 % 40.0-50.0 CALCIUM, [id number] 12:18:00* Test Item Value Reference Range Comments CALCIUM IONIZED (BEAKER) (test hzth=239) 1.06 mmol/L 1.12-1.27 PH, BLOOD (BEAKER) (test fcjn=1285) 7.31 SODIUM NA-STAT [id number] 12:15:00* Test Item Value Reference Range Comments SODIUM (BEAKER) (test pwcw=001) 139 meq/L 135-148 POTASSIUM-STAT [id number] 12:15:00* Test Item Value Reference Range Comments POTASSIUM (BEAKER) (test btjc=343) 3.8 meq/L 3.6-5.5 OXYGEN SATURATION, [id number] 12:13:00* Test Item Value Reference Range Comments O2 SATURATION (MEASURED) (BEAKER) (test ousk=5888) 72.0 % [id number] 11:22:00* Test Item Value Reference Range Comments ACTIVATED CLOTTING TIME (BEAKER) (test osxt=986) 109 sec TESTED AT [place] [id number] 11:22:00* Test Item Value Reference Range Comments ACTIVATED CLOTTING TIME (BEAKER) (test nicc=535) 433 sec TESTED AT [place] [id number] 11:22:00* Test Item Value Reference Range Comments ACTIVATED CLOTTING TIME (BEAKER) (test orbo=339) 527 sec TESTED AT [place] [id number] 11:22:00* Test Item Value Reference Range Comments ACTIVATED CLOTTING TIME (BEAKER) (test vftq=407) 466 sec TESTED AT [facility] [address] [place] [address] THROMBOELASTOGRAPH (TEG)2017-02-07 11:13:00* Test Item Value Reference Range Comments TEG ACTIVATED CLOTTING TIME (BEAKER) (test cwmy=6507) 4.7 minutes 4.0-7.0 TEG FIBRINOGEN ACTIVITY (BEAKER) (test yrva=3064) 69.3 degrees 61.0-73.0 TEG PLT. AGGREGATION (BEAKER) (test uugt=9206) 46.6 MM 55.0-65.0 TGH ACTIVATED CLOTTING TIME (BEAKER) (test adrz=0408) 4.8 minutes 4.0-7.0 TGH FIBRINOGEN ACTIVITY (BEAKER) (test cigq=2283) 68.1 degrees 61.0-73.0 TGH PLT. AGGREGATION (BEAKER) (test jobq=4939) 55.8 MM 55.0-65.0 [id number] 10:42:00* Test Item Value Reference Range Comments PARTIAL THROMBOPLASTIN TIME (BEAKER) (test gpmz=106) 30.9 seconds 22.5-36.0 [id number] 10:42:00* Test Item Value Reference Range Comments FIBRINOGEN LEVEL (BEAKER) (test uxic=502) 184 mg/dl 225-434 PROTHROMBIN [id number] 10:41:00* Test Item Value Reference Range Comments PROTIME (BEAKER) (test qede=075) 19.6 seconds 11.7-14.7 INR (BEAKER) (test uyly=130) 1.7 <=5.9 RECOMMENDED COUMADIN/WARFARIN INR THERAPY RANGESSTANDARD DOSE: 2.0 - 3.0 Inclu jennifer: PROPHYLAXIS for venous thrombosis, systemic embolization; TREATMENT for dai ous thrombosis and/or pulmonary embolus.HIGH RISK: Target INR is 2.5-3.5 for pat ients with mechanical heart valves.PLATELET [id number] 10:36:00* Test Item Value Reference Range Comments PLATELET COUNT (BEAKER) (test ksoq=373) 145 K/CU MM 150-450 CALCIUM, [id number] 10:33:00* Test Item Value Reference Range Comments CALCIUM IONIZED (BEAKER) (test odve=173) 1.11 mmol/L 1.12-1.27 PH, BLOOD (BEAKER) (test aftn=5162) 7.38 BLOOD GAS, [id number] 10:32:00* Test Item Value Reference Range Comments PH ARTERIAL (BEAKER) (test blny=353) 7.38 7.35-7.45 PCO2 ARTERIAL (BEAKER) (test qxpe=391) 38 mmHg 35-45 PO2 ARTERIAL (BEAKER) (test vqxe=412) 406 mmHg 80-90 O2 SATURATION ARTERIAL (BEAKER) (test wkuv=440) 99.8 % 96.0-97.0 HCO3 ARTERIAL (BEAKER) (test dyvp=641) 23 mmol/L 21-29 BASE EXCESS ARTERIAL (BEAKER) (test iktf=485) -2.9 mmol/L -2.0-3.0 PATIENT TEMPERATURE (BEAKER) (test vgst=3127) 34.9 C FIO2 (BEAKER) (test wpor=0817) 100.0 % GLUCOSE-STAT [id number] 10:32:00* Test Item Value Reference Range Comments GLUCOSE RANDOM (BEAKER) (test dasa=222) 173 mg/dL 70-110 HGB/HCT (H&H) - STAT [id number] 10:32:00* Test Item Value Reference Range Comments HEMOGLOBIN (BEAKER) (test gdmm=595) 9.6 g/dL 13.0-16.8 HEMATOCRIT (BEAKER) (test pprj=406) 28.0 % 40.0-50.0 SODIUM NA-STAT [id number] 10:31:00* Test Item Value Reference Range Comments SODIUM (BEAKER) (test cpnh=418) 138 meq/L 135-148 POTASSIUM-STAT [id number] 10:31:00* Test Item Value Reference Range Comments POTASSIUM (BEAKER) (test gvpi=834) 3.7 meq/L 3.6-5.5 SODIUM NA-STAT [id number] 09:56:00* Test Item Value Reference Range Comments SODIUM (BEAKER) (test kkgk=355) 134 meq/L 135-148 BLOOD GAS, [id number] 09:56:00* Test Item Value Reference Range Comments PH ARTERIAL (BEAKER) (test bnkn=276) 7.42 7.35-7.45 PCO2 ARTERIAL (BEAKER) (test ajvm=330) 39 mmHg 35-45 PO2 ARTERIAL (BEAKER) (test kdpy=086) 333 mmHg 80-90 O2 SATURATION ARTERIAL (BEAKER) (test dbwo=109) 99.8 % 96.0-97.0 HCO3 ARTERIAL (BEAKER) (test uboy=154) 25 mmol/L 21-29 BASE EXCESS ARTERIAL (BEAKER) (test qxel=669) -0.4 mmol/L -2.0-3.0 PATIENT TEMPERATURE (BEAKER) (test lncy=9272) 34.8 C FIO2 (BEAKER) (test rqso=8986) 70.0 % GLUCOSE-STAT [id number] 09:56:00* Test Item Value Reference Range Comments GLUCOSE RANDOM (BEAKER) (test ddcs=859) 197 mg/dL 70-110 HGB/HCT (H&H) - STAT [id number] 09:56:00* Test Item Value Reference Range Comments HEMOGLOBIN (BEAKER) (test uzch=781) 11.0 g/dL 13.0-16.8 HEMATOCRIT (BEAKER) (test tllx=259) 32.0 % 40.0-50.0 POTASSIUM-STAT [id number] 09:51:00* Test Item Value Reference Range Comments POTASSIUM (BEAKER) (test wlsm=054) 4.8 meq/L 3.6-5.5 BLOOD GAS, [id number] 09:32:00* Test Item Value Reference Range Comments PH ARTERIAL (BEAKER) (test rjsf=956) 7.42 7.35-7.45 PCO2 ARTERIAL (BEAKER) (test nzzd=480) 37 mmHg 35-45 PO2 ARTERIAL (BEAKER) (test vnag=442) 507 mmHg 80-90 O2 SATURATION ARTERIAL (BEAKER) (test vuob=069) 99.9 % 96.0-97.0 HCO3 ARTERIAL (BEAKER) (test quqe=635) 25 mmol/L 21-29 BASE EXCESS ARTERIAL (BEAKER) (test ljsn=957) -1.2 mmol/L -2.0-3.0 PATIENT TEMPERATURE (BEAKER) (test send=2418) 29.8 C FIO2 (BEAKER) (test vypa=6574) 80.0 % GLUCOSE-STAT [id number] 09:32:00* Test Item Value Reference Range Comments GLUCOSE RANDOM (BEAKER) (test rufl=087) 173 mg/dL 70-110 SODIUM NA-STAT [id number] 09:32:00* Test Item Value Reference Range Comments SODIUM (BEAKER) (test rxfw=958) 133 meq/L 135-148 HGB/HCT (H&H) - STAT [id number] 09:32:00* Test Item Value Reference Range Comments HEMOGLOBIN (BEAKER) (test ygjo=904) 11.3 g/dL 13.0-16.8 HEMATOCRIT (BEAKER) (test qqcv=548) 33.0 % 40.0-50.0 POTASSIUM-STAT [id number] 09:31:00* Test Item Value Reference Range Comments POTASSIUM (BEAKER) (test expq=664) 4.1 meq/L 3.6-5.5 SODIUM NA-STAT [id number] 08:43:00* Test Item Value Reference Range Comments SODIUM (BEAKER) (test vpvs=285) 138 meq/L 135-148 POTASSIUM-STAT [id number] 08:43:00* Test Item Value Reference Range Comments POTASSIUM (BEAKER) (test yivu=437) 3.8 meq/L 3.6-5.5 BLOOD GAS, [id number] 08:43:00* Test Item Value Reference Range Comments PH ARTERIAL (BEAKER) (test ists=392) 7.41 7.35-7.45 PCO2 ARTERIAL (BEAKER) (test mags=497) 41 mmHg 35-45 PO2 ARTERIAL (BEAKER) (test fqfj=572) 435 mmHg 80-90 O2 SATURATION ARTERIAL (BEAKER) (test vzsy=495) 99.8 % 96.0-97.0 HCO3 ARTERIAL (BEAKER) (test zbdq=658) 26 mmol/L 21-29 BASE EXCESS ARTERIAL (BEAKER) (test gmkh=064) 0.4 mmol/L -2.0-3.0 PATIENT TEMPERATURE (BEAKER) (test qrar=8395) 35.3 C FIO2 (BEAKER) (test sxdb=2635) 100.0 % GLUCOSE-STAT [id number] 08:43:00* Test Item Value Reference Range Comments GLUCOSE RANDOM (BEAKER) (test aail=576) 113 mg/dL 70-110 HGB/HCT (H&H) - STAT [id number] 08:43:00* Test Item Value Reference Range Comments HEMOGLOBIN (BEAKER) (test zzbu=269) 13.4 g/dL 13.0-16.8 HEMATOCRIT (BEAKER) (test hhay=495) 39.0 % 40.0-50.0 HEMOGLOBIN [id number] 12:54:00* Test Item Value Reference Range Comments HEMOGLOBIN A1C (BEAKER) (test vmpa=279) 5.1 % 4.3-6.1 BASIC METABOLIC [id number] 10:41:00* Test Item Value Reference Range Comments SODIUM (BEAKER) (test taij=001) 137 meq/L 136-145 POTASSIUM (BEAKER) (test unud=001) 4.8 meq/L 3.5-5.1 CHLORIDE (BEAKER) (test tcby=897) 104 meq/L 98-107 CO2 (BEAKER) (test syoq=844) 24 meq/L 22-29 BLOOD UREA NITROGEN (BEAKER) (test tsup=065) 20 mg/dL 7-21 CREATININE (BEAKER) (test uejo=200) 0.90 mg/dL 0.57-1.25 GLUCOSE RANDOM (BEAKER) (test szpl=818) 91 mg/dL 70-105 CALCIUM (BEAKER) (test ogxd=960) 9.7 mg/dL 8.4-10.2 EGFR (BEAKER) (test gjmi=1754) 85 mL/min/1.73 sq m ESTIMATED GFR IS NOT ACCURATE CREATININE CLEARANCE IN PREDICTING GLOMERULAR FILTRATION RATE. ESTIMATED GFR IS NOT APPLICABLE FOR DIALYSIS PATIENTS. PROTHROMBIN TIME/[id number] 10:34:00* Test Item Value Reference Range Comments PROTIME (BEAKER) (test qsoc=675) 12.7 seconds 11.7-14.7 INR (BEAKER) (test cofm=346) 1.0 <=5.9 RECOMMENDED COUMADIN/WARFARIN INR THERAPY RANGESSTANDARD DOSE: 2.0 - 3.0 Inclu jennifer: PROPHYLAXIS for venous thrombosis, systemic embolization; TREATMENT for adi ous thrombosis and/or pulmonary embolus.HIGH RISK: Target INR is 2.5-3.5 for pat ients with mechanical heart valves.CBC W/PLT COUNT & AUTO [id number] 10:26:00* Test Item Value Reference Range Comments WHITE BLOOD CELL COUNT (BEAKER) (test mylw=949) 8.1 K/ L 3.5-10.5 RED BLOOD CELL COUNT (BEAKER) (test xqgm=864) 4.74 M/ L 4.63-6.08 HEMOGLOBIN (BEAKER) (test qdzw=384) 14.5 GM/DL 13.7-17.5 HEMATOCRIT (BEAKER) (test umjt=369) 42.7 % 40.1-51.0 MEAN CORPUSCULAR VOLUME (BEAKER) (test fiyb=766) 90.1 fL 79.0-92.2 MEAN CORPUSCULAR HEMOGLOBIN (BEAKER) (test gkgb=523) 30.6 pg 25.7-32.2 MEAN CORPUSCULAR HEMOGLOBIN CONC (BEAKER) (test guzt=954) 34.0 GM/DL 32.3-36.5 RED CELL DISTRIBUTION WIDTH (BEAKER) (test zewe=070) 13.3 % 11.6-14.4 PLATELET COUNT (BEAKER) (test tslu=359) 291 K/CU MM 150-450 MEAN PLATELET VOLUME (BEAKER) (test zcfd=972) 10.8 fL 9.4-12.4 NUCLEATED RED BLOOD CELLS (BEAKER) (test psip=548) 0 /100 WBC 0-0 NEUTROPHILS RELATIVE PERCENT (BEAKER) (test sdmz=742) 63 % LYMPHOCYTES RELATIVE PERCENT (BEAKER) (test yciq=876) 23 % MONOCYTES RELATIVE PERCENT (BEAKER) (test qvsa=251) 7 % EOSINOPHILS RELATIVE PERCENT (BEAKER) (test duna=852) 4 % BASOPHILS RELATIVE PERCENT (BEAKER) (test aqcz=534) 2 % NEUTROPHILS ABSOLUTE COUNT (BEAKER) (test wluf=705) 5.12 K/ L 1.78-5.38 LYMPHOCYTES ABSOLUTE COUNT (BEAKER) (test jnwz=107) 1.89 K/ L 1.32-3.57 MONOCYTES ABSOLUTE COUNT (BEAKER) (test jdcb=201) 0.60 K/ L 0.30-0.82 EOSINOPHILS ABSOLUTE COUNT (BEAKER) (test teep=064) 0.31 K/ L 0.04-0.54 BASOPHILS ABSOLUTE COUNT (BEAKER) (test rmew=623) 0.13 K/ L 0.01-0.08 IMMATURE GRANULOCYTES-RELATIVE PERCENT (BEAKER) (test wucv=7436) 1 % 0-1
--- NOTE | 2019-04-25 07:15 | NUR ---
SPIRITUAL CARE - Pre-Surgery Assessment: Pt in bed. Pt's at bedside. Pt reported supportive attention from family and friends. Intervention: I provided pastoral presence, hospitality, and sympathetic listening. I acquainted pt with availability of logging equipment operator while hospitalized. Outcome: Pt expressed appreciation for visit. No need for follow up indicated at this time. [facility] Spiritual Care Department O: [phone] Pager: [phone] ([phone] number calling from)
[2019-04-25 10:26] VITALS: BP 112/68
--- NOTE | 2019-04-25 16:06 | Operative Report ---
DATE OF PROCEDURE: 04/25/2019 SURGEON: Nolan Delatorre MD PROCEDURES: EGD with biopsies and esophageal dilatation and a colonoscopy with polypectomy. INDICATIONS FOR EGD: Acid reflux, dysphagia. INDICATIONS FOR COLONOSCOPY: Colorectal cancer screening. MEDICATIONS: The patient was done under MAC, please see anesthesiologist's note. PROCEDURE IN DETAIL: With the patient in left lateral decubitus position, the Olympus flexible fiberoptic gastroscope was introduced into the esophagus under direct visualization without any difficulty. There was some patchy erythema noted in distal esophagus. A mild stricture was noted at the GE junction that was dilated to size 54-[place] Phipps. The scope was then advanced with ease into the stomach. Mucosa overlying the antrum and the body revealed some patchy erythema and jnyo-an-msqomghj edema, and biopsies were obtained and sent to stain for H. pylori. The pylorus was of normal contour and shape. It was intubated with ease and the scope was advanced all the way to the second portion of the duodenum. Mucosa overlying the proximal second portion and duodenal bulb appeared to be within normal limits. The scope was then withdrawn back into the stomach and retroflexed, and mucosa overlying the fundus and the cardia appeared to be within normal limits. The scope was then straightened out, it was subsequently withdrawn, and the patient tolerated the procedure well. IMPRESSION: 1. Distal esophagitis, mild. 2. Esophagus dilated to size 54-[place] Phipps. 3. Gastritis, biopsied, biopsies sent to stain for Helicobacter pylori. PLAN: Follow up histology. Initiate Protonix 40 mg 1 p.o. q.a.m. before meals. The patient was then turned around and after adequate lubrication of the anal canal, a flexible fiberoptic Olympus colonoscope was inserted into the rectum with ease and advanced all the way to the cecum. It was then withdrawn slowly. Mucosa overlying the cecum, ascending colon, and transverse colon appeared to be within normal limits. Some diverticular disease was noted to involve the distal descending and the sigmoid colon. Two minute polyps were hot biopsied from the rectosigmoid area and two polyps were hot biopsied from the distal rectum. The scope was then retroflexed into the distal rectum and small internal hemorrhoids were noted, none of which was actively bleeding. A single hypertrophied anal papilla was also noted. The scope was then straightened out, it was subsequently withdrawn, and the patient tolerated the procedure well. IMPRESSION: 1. Diverticulosis. 2. Rectosigmoid polyps x2, hot biopsied. 3. Rectal polyps x2, hot biopsied. 4. Internal hemorrhoids, none actively bleeding. PLAN: Follow up histology. Initiate high-fiber, low-fat diet. Initiate high-fiber supplement. The patient might benefit from a followup colonoscopy in 3 to 5 years. Nolan Delatorre MD [facility] [place] /[id number] cc: Abdulkadir Stephens MD
== END | disposition home or self-care (01) ==
LOC: OR 06:18
PROVIDERS: ATTEND Internal Medicine Gastroenterology
DX: K21.0 Gastro-esophageal reflux disease with esophagitis (principal); Z72.0 Tobacco use; I10 Essential (primary) hypertension; Z95.2 Presence of prosthetic heart valve; Z01.810 Encounter for preprocedural cardiovascular examination; Z01.812 Encounter for preprocedural laboratory examination; K29.70 Gastritis, unspecified, without bleeding; K57.30 Diverticulosis of large intestine without perforation or abscess without bleeding; K63.5 Polyp of colon; K62.1 Rectal polyp; K64.8 Other hemorrhoids; K22.2 Esophageal obstruction
CPT/HCPCS: 36415; 43239; 43450; 45384; 85025; 88305; 88312; 93005; J2001; J2250; J2704; 45378

== ENCOUNTER → 2025-01-10 | Day surgery (SDC) | payer MEDICARE, OTHER ==
[2024-12-31 14:26] LABS: BASOPHILS % 0.8 % (0.0-1.0); EOSINOPHILS % 4.1 % (0.0-6.0); LYMPHOCYTES % 20.8 % (18.0-39.1); MONOCYTES % 10.1 % (4.4-11.3); NEUTROPHILS % 63.1 % (38.7-80.0); RED CELL DISTRIBUTION WIDTH 14.8 % (11.7-14.4)
[~2025-01-10] MED LIST changes: +ASPIRIN81 MG PO; +BENICAR20 MG PO; +CARVEDILOL12.5 MG PO; +CELEBREX200 MG PO; -HYOSCYAMINE 0.125 MG TAB ONE; +HYOSCYAMINE SULFATE 0.5 MG/ML INJ ONE; +MELOXICAM7.5 MG PO; +METOCLOPRAMIDE HCL 10 MG/2ML VIAL ONE; -MIDAZOLAM HCL 2 MG/2 ML VIAL ONE; +NEURONTIN300 MG PO; +OMEPRAZOLE40 MG PO; +ONDANSETRON HCL INJ 2MG/ML 2ML 2 MG/ML VIAL ONE; +PHENYLEPHRINE HCL 1% 10 MG/ML VIAL ONE; -PROPOFOL IV EMULSION 10 MG/ML 50 ML VIAL ONE; +PROPOFOL IV EMULSION 50 ML IV ONE; +SODIUM CHLORIDE 0.9% 100 ML ONE; +TRIAMTERENE-HCTZ1 EA PO
[2025-01-10 10:19] LABS: EST GLOMERULAR FILTRATION RATE 33.0 ML/MIN (>=60)
[2025-01-10 11:50] VITALS: TEMP 97.3
[2025-01-10 12:50] VITALS: BP 132/65; PULSE 73; RESP 16; O2SAT 97
== END | disposition home or self-care (01) ==
LOC: OR 09:10
PROVIDERS: ATTEND Internal Medicine Gastroenterology
DX: Z12.11 Encounter for screening for malignant neoplasm of colon (principal); D12.0 Benign neoplasm of cecum; D12.3 Benign neoplasm of transverse colon; K57.30 Diverticulosis of large intestine without perforation or abscess without bleeding; K64.8 Other hemorrhoids; K63.5 Polyp of colon; K21.00 Gastro-esophageal reflux disease with esophagitis, without bleeding; K29.50 Unspecified chronic gastritis without bleeding; K31.7 Polyp of stomach and duodenum; I10 Essential (primary) hypertension; Z95.2 Presence of prosthetic heart valve; Z01.810 Encounter for preprocedural cardiovascular examination; Z01.812 Encounter for preprocedural laboratory examination
CPT/HCPCS: 36415 ×2; 43239; 45385; 80048; 82948; 85025; 88305; 93005 ×2; J1980; J2003; J2371; J2405; J2470; J2704; J2765; J7050; 45378